=== PATIENT | female | born 2005 | race African-American/Black ===

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

== ENCOUNTER 2023-05-25 15:58 | Emergency (ER) | payer OTHER | END 2023-05-25 16:49 | disposition home or self-care (01) | LOC: BURERS 15:58 | DX: J10.1 Influenza due to other identified influenza virus with other respiratory manifestations (principal) | CPT/HCPCS: 87804; 99283 ==

== ENCOUNTER 2024-04-21 17:49 | Emergency (ER) | payer OTHER, SELFPAY | END 2024-04-21 19:48 | disposition home or self-care (01) | LOC: BURERS 17:49 | DX: J06.9 Acute upper respiratory infection, unspecified (principal) | CPT/HCPCS: 71045 ==

== ENCOUNTER 2025-04-13 17:35 | Emergency (ER) | payer OTHER ==
[2025-04-13 18:00] LABS: Glucose, Urine (Dipstick) Negative (Negative); Leukocyte Moderate (Negative); Pregnancy Test - Urine (BHCG) POSITIVE (Negative); Pregu Control Background? CLEAR/WHITE (CLR/WHITE); Pregu Control Bar Appear? YES (CONTROL BAR); Protein, Urine (Dipstick) Negative (Neg-Trace); Specific Gravity, Urine 1.020 (1.005-1.030)
[2025-04-13 18:06] LABS: Bacteria/HPF Rare-Few HPF (None Seen); CAUTI Indications for Culture Dysuria,urgency,freq; RBC/HPF 0-3 HPF (0-3); Urine Culture Reflex No No
== END 2025-04-13 18:34 | disposition home or self-care (01) ==
LOC: BURERS 17:35
DX: O26.892 Other specified pregnancy related conditions, second trimester (principal); R10.9 Unspecified abdominal pain; Z3A.20 20 weeks gestation of pregnancy
CPT/HCPCS: 81001; 81025; 99284